=== PATIENT | female | born 1995 | race American Indian/Alaskan Native ===

== ENCOUNTER 2017-12-09 17:24 | Emergency (ER) | payer SELFPAY ==
[2017-12-09 17:44] VITALS: BP 116/74
--- NOTE | 2017-12-09 20:23 | Emergency Department Report ---
ED N/V/D HPI - General Chief complaint: Nausea/Vomiting/Diarrhea Stated complaint: VOMITING/STOMACH PAIN/CONSTIPATION Time Seen by Provider: 12/09/17 20:05 Source: patient Mode of arrival: Ambulatory Limitations: No Limitations - History of Present Illness Initial comments: 22-year-old -[place] female presents to the emergency room complaining of constipation, nausea vomiting. Patient reports that she is one month . Delivered on 10/19/2017 vaginally. Patient reports that she has been suffering from constipation for 2 months last BM was 2 months ago. Patient reports that she is having clear liquid coming from her rectum and not moving any stool. Patient reports that she is tried taking laxatives which has not helped. Patient reports his abdominal pain that is sharp and constant. She denies any fever but reports she has hot flashes. Patient is allergic to hydrocodone. MD complaint: nausea, vomiting, diarrhea -: month(s) (2) Associated Abdominal Pain: Yes Location: diffuse Severity: moderate Quality: sharp Consistency: constant Improves with: none Worsens with: none Associated Symptoms: fever/chills, nausea/vomiting (her) - Related Data Allergies Allergy/AdvReac Type Severity Reaction Status Date / Time acetaminophen [From Vicodin] Allergy Hives Verified 12/09/17 17:44 hydrocodone [From Vicodin] Allergy Hives Verified 12/09/17 17:44 ED Review of Systems ROS: Stated complaint: VOMITING/STOMACH PAIN/CONSTIPATION Other details as noted in HPI Comment: All other systems reviewed and negative Constitutional: chills. 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 - Social History Smoking Status: Current Every Day Smoker Substance Use Type: None, Marijuana ED Physical Exam - General Limitations: No Limitations General appearance: alert, in no apparent distress - Head Head exam: Present: atraumatic, normocephalic - Eye Eye exam: Present: EOMI - ENT ENT exam: Present: mucous membranes moist ED Course Vital Signs 12/09/17 17:38 Temperature 98.6 F Pulse Rate 126 H Respiratory 16 Rate Blood Pressure 116/74 O2 Sat by Pulse 99 Oximetry ED Medical Decision Making - Radiology Data Radiology results: report reviewed FINAL REPORT PROCEDURE: XR ABDOMEN 1V AP TECHNIQUE: Abdominal radiograph, single supine AP view. HISTORY: abd pains and constipation COMPARISON: No prior studies are available for comparison. FINDINGS: Bowel gas pattern:Intestinal gas is distributed predominantly in mildly distended transverse colon. There is mild degree residual stool in the descending colon. There is no small bowel dilatation.. Masses or calcifications:None. Bony structures:No significant abnormality. Other:None. IMPRESSION: Mild degree residual stool Otherwise intestinal gas pattern is of nonspecific nature. Transcribed By: [facility] Dictated By: ANOOP DURAN Electronically Authenticated By: ANOOP DURAN Signed Date/Time: 12/09/172202 DD/ 02 TD/TT: 12/09/172202 Critical care attestation.: If time is entered above; I have spent that time in minutes in the direct care of this critically ill patient, excluding procedure time. ED Disposition Clinical Impression: Constipation Disposition: - LEFT AGAINST MED ADVICE Is pt being admited?: No Does the pt Need Aspirin: No Condition: Undetermined Referrals: PRIMARY CARE, [Primary Care Provider] - 3-5 Days Forms: AMA Form
[2017-12-09 21:02] LABS: Bilirubin,Urine SM (Negative); Blood,Urine NEG (Negative); Color,Urine Dark Yellow (Yellow); Mucus,Urine FEW /HPF
[2017-12-09 21:11] LABS: Ictotest,Urine Negative (Negative)
--- NOTE | 2017-12-09 22:03 | XRay Report ---
FINAL REPORT PROCEDURE: XR ABDOMEN 1V AP TECHNIQUE: Abdominal radiograph, single supine AP view. HISTORY: abd pains and constipation COMPARISON: No prior studies are available for comparison. FINDINGS: Bowel gas pattern:Intestinal gas is distributed predominantly in mildly distended transverse colon. There is mild degree residual stool in the descending colon. There is no small bowel dilatation.. Masses or calcifications:None. Bony structures:No significant abnormality. Other:None. IMPRESSION: Mild degree residual stool Otherwise intestinal gas pattern is of nonspecific nature.
== END 2017-12-09 21:54 | disposition left against medical advice (07) ==
LOC: ED 17:24
DX: O90.89 Other complications of the puerperium, not elsewhere classified (principal); K59.00 Constipation, unspecified; R11.2 Nausea with vomiting, unspecified; R10.84 Generalized abdominal pain; F17.200 Nicotine dependence, unspecified, uncomplicated; F12.10 Cannabis abuse, uncomplicated; Z88.6 Allergy status to analgesic agent
CPT/HCPCS: 36415; 74018; 81001; 84703